=== PATIENT | male | born 1965 | race Caucasian/White ===

== ENCOUNTER 2025-04-24 13:30 | Outpatient (CLI) | payer OTHER, SELFPAY ==
[2025-04-23 10:46] VITALS: BMI 33.4
[2025-04-24] VITALS (10 sets, daily range): BP systolic 108–155; BP diastolic 55–77; PULSE 50–63; RESP 12–23; TEMP 37.1; O2SAT 97–98
--- NOTE | 2025-04-24 13:00 | XR_ITS ---
Examination: MRI lumbar spine without contrast Intravenous conscious sedation Date and time of exam: April 24, 2025, 1408 hours. INDICATIONS: Low back pain radiating to the right hip months Technique: Under physician supervision, Versed 2 mg and fentanyl 25 mcg administered intravenously for moderate sedation. Pulse oximetry, heart rate, blood pressure continuously monitored with an independent training observer present. The physician spent 15 minutes of [id number] sedation time with the patient Multiple MRI axial and sagittal sections lumbar spine. Sagittal T2-weighted images, TR 3500, TE 118 T1 weighted transverse sections, TR 688 T8.5, T2-weighted sagittal sections T1 weighted sagittal sections TR 621, TE 30 T2 axial sections, TR 4, 190, TE 84. Findings: Adequate alignment lumbar vertebral bodies Moderate chronic compression fracture L2 No acute infarct or fracture Adequate marrow signal lumbar vertebral bodies L5-S1 3 mm central lumbar disc bulge extending to the left foramen with mild left L5 ganglionic compression L4-L5 3 mm central lumbar disc bulge L3-L4 3 mm central lumbar disc bulge L2-L3 foraminal disc bulges but no ganglionic compression L1-L2 no disc protrusion IMPRESSION: L5-S1, L4-L5, L3-L4 3 mm central lumbar disc bulges Mild left L5 ganglionic compression
[2025-04-24] MEDS: SODIUM CHLORIDE 0.9% 500 ML 500 ML 20 ML IV (13:55)
[2025-04-24] MEDS: MIDAZOLAM INJ 1 MG/ML VIAL 2 ML 2 MG IVP (14:04)
[2025-04-24] MEDS: fentaNYL CIT INJ 50 mCg/ML AMP 2ML 25 MCG IVP (14:04)
== END 2025-04-24 15:15 | disposition home or self-care (01) ==
DX: M51.360 Other intervertebral disc degeneration, lumbar region with discogenic back pain only (principal); M51.370 Other intervertebral disc degeneration, lumbosacral region with discogenic back pain only; G95.20 Unspecified cord compression
CPT/HCPCS: 72148; 99152; 99153; J2250; J3010; J7999